=== PATIENT | male | born 1995 | race African-American/Black ===

== ENCOUNTER 2021-10-04 23:19 | Emergency (ER) | payer SELFPAY ==
[2021-10-04] MEDS ORDERED: Lidocaine/Epineph/Tetracaine 3 ML Syringe TOP ONE (23:51)
[2021-10-04] MEDS ORDERED: Diphtheria,Pertussis(Acell),Tetanus Vaccine 0.5 ML Syringe IM ONE (23:52)
== END 2021-10-05 00:49 | disposition home or self-care (01) ==
LOC: MW.ED 23:19
DX: S01.01XA Laceration without foreign body of scalp, initial encounter (principal); Z23 Encounter for immunization; W01.198A Fall on same level from slipping, tripping and stumbling with subsequent striking against other object, initial encounter
CPT/HCPCS: 12001; 99282; A9270

== ENCOUNTER 2021-10-16 08:37 | Emergency (ER) | payer SELFPAY | END 2021-10-16 08:55 | disposition left against medical advice (07) | LOC: MW.ED 08:37 | DX: Z53.21 Procedure and treatment not carried out due to patient leaving prior to being seen by health care provider (principal) ==